=== PATIENT | male | born 1935 | race Caucasian/White ===

== ENCOUNTER 2017-12-26 14:24 | Emergency (ER) | payer OTHER, BC ==
[~2017-12-26] VITALS: Ht 177.8 cm; Wt 98.3 kg
[2017-12-26 15:27] LABS: HEMATOCRIT 38.3 % (38.0-50.0); HEMOGLOBIN 13.1 G/DL (12.5-16.6); MCH 30.4 PG (29.0-34.0); MCHC 34.2 G/DL (30.0-36.0); MCV 88.9 FL (86-99); PLATELET COUNT 188 K/uL (156-360); RBC DIS.WIDTH-CV 13.2 % (11.8-14.6); RBC DIS.WIDTH-SD 43.5 % (39-53); RED BLOOD COUNT 4.31 M/uL (4.00-5.50); WHITE BLOOD COUNT 9.1 K/uL (4.1-10.2)
[2017-12-26 20:37] VITALS: BP 126/70
== END 2017-12-26 20:38 | disposition home or self-care (01) ==
LOC: EME 14:24
PROVIDERS: Physician Assistant
PROC: 2Y41X5Z Packing of Nasal Region using Packing Material (ICD-10-PCS; principal; 2017-12-26)
DX: R04.0 Epistaxis (principal); I48.91 Unspecified atrial fibrillation; Z79.01 Long term (current) use of anticoagulants
CPT/HCPCS: 85027; 85610; 99281; 99285; J7030; J7040